=== PATIENT | male | born 1970 | race Caucasian/White ===

== ENCOUNTER 2017-06-17 13:15 | Emergency (ER) | payer SELFPAY ==
[2017-06-17 13:27] VITALS: BP 125/82
[2017-06-17] MEDS ORDERED: BOOSTRIX IM ONE (14:29)
[2017-06-17] MEDS ORDERED: XYLOCAINE 1% 20 mL INFILTRATI ONE (14:29)
[2017-06-17] MEDS ORDERED: MOTRIN PO ONE (14:29)
[2017-06-17] MEDS ORDERED: NACL 0.9% IR ONE (14:30)
--- NOTE | 2017-06-17 14:53 | XRay Report ---
Left index finger 3 views: History: Laceration. Findings: No articular abnormality. No fracture dislocation or periosteal reaction. Impression: No definite bony abnormality left index finger.
--- NOTE | 2017-06-17 15:35 | Emergency Department Report ---
ED Laceration [facility] Chief Complaint: Wound/Laceration Stated Complaint: LEFT HAND LACERATION Time Seen by Provider: 06/17/17 14:28 Occurred When: Yesterday Location: Upper Extremity (left posterior index finger proximal to first joint) Severity: moderate Tetanus Status: Not up to Date Laceration Symptoms: Yes Pain (6/10 aching ), No Foreign Body Sensation, No Numbness, No Weakness ED Review of Systems ROS: Stated complaint: LEFT HAND LACERATION Other details as noted in HPI Constitutional: denies: chills, fever Eyes: denies: eye pain, eye discharge, vision change ENT: denies: ear pain, throat pain Respiratory: denies: cough, shortness of breath, wheezing Cardiovascular: denies: chest pain, palpitations Endocrine: no symptoms reported Gastrointestinal: denies: abdominal pain, nausea, diarrhea Genitourinary: denies: urgency, dysuria Musculoskeletal: denies: back pain, joint swelling, arthralgia Skin: other (laceration finger left index ). denies: rash, lesions Neurological: denies: headache, weakness, paresthesias Psychiatric: denies: anxiety, depression Hematological/Lymphatic: as per HPI ED Past Medical Hx - Past Medical History Previous Medical History?: No - Surgical History Past Surgical History?: Yes Additional Surgical History: reconstructive 2007 - Social History Smoking Status: Current Every Day Smoker Substance Use Type: Alcohol - Medications Home Medications: Home Medications Medication Instructions Recorded Confirmed Last Taken Type Cephalexin [Keflex] 500 mg PO TID #30 capsule 06/17/17 Unknown Rx traMADol [Ultram 50 MG tab] 50 mg PO Q6HR PRN #21 tablet 06/17/17 Unknown Rx Laceration Physical Exam - Exam General: Vital signs noted. No distress. Alert and acting appropriately. Wound Length (cm): 1 (1 cm irregular ) Laceration Location: Upper Extremity Laceration Exam: Yes Normal Distal CMS, No Foreign Body, No Exposed Tendon, Vessel, or Nerve, No Tendon Injury ED Course Vital Signs 06/17/17 13:22 Temperature 98.7 F Pulse Rate 98 H Respiratory 17 Rate Blood Pressure 125/82 O2 Sat by Pulse 98 Oximetry - Laceration /Wound Repair Left Posterior Finger Wound Length (cm): 1 Wound's Depth, Shape: irregular Wound Explored: clean Irrigated w/ Saline (ccs): 200 Betadine Prep?: Yes Anesthesia: 1% Lidocaine Volume Anesthetic (ccs): 3 Wound Debrided: minimal Wound Repaired With: sutures Suture Size/Type: 3:0, proline Number of Sutures: 6 Layer Closure?: No Sterile Dressing Applied?: Yes Progress: left posterior index finger laceration irregular no nerve tendon or muscle involvement rom intact no numbness tingling or weakness flexion nad extension to confrontation intace minimal bleeding wound cleaned with betadine solution anesthesia with 1 lidocaine 3 cc, wound irrigated with 200 cc sterile saline wound close with 3.0 prolyne x 6 sutures all bleed controlled sterile dressing applied pt tolerated procedure with minimal distress pt given wound care instructions . pt verbalized agreement and understanding of discharge instructions. ED Medical Decision Making - Radiology Data Radiology results: report reviewed no fracture - Medical Decision Making pt is a 46 y/o h[place] right handed who presents for left posterior index finger lacertion versus glass approx 12 hrs ago. wound closed , see procedure, noted, tdap given , all bleeding controlled pt tolerated procedure with minimal distress, pt given wound care instructions will follow up with pcp or return to emergency in 7-10 days for suture removal or sooner if symptoms of infection. Critical care attestation.: If time is entered above; I have spent that time in minutes in the direct care of this critically ill patient, excluding procedure time. ED Disposition Clinical Impression: Laceration of finger Qualifiers: Encounter type: initial encounter Finger: index finger Damage to nail status: with damage Foreign body presence: without foreign body Laterality: left Qualified Code(s): S61.311A - Laceration without foreign body of left index finger with damage to nail, initial encounter Disposition: TO HOME OR SELFCARE Is pt being admited?: No Does the pt Need Aspirin: No Condition: Good Instructions: Laceration (ED) Prescriptions: Cephalexin [Keflex] 500 mg PO TID #30 capsule traMADol [Ultram 50 MG tab] 50 mg PO Q6HR PRN #21 tablet PRN Reason: Pain Referrals: PRIMARY CARE,MD [Primary Care Provider] - 3-5 Days Forms: Work/School Release Form(ED) Time of Disposition: 15:47
== END 2017-06-17 16:02 | disposition home or self-care (01) ==
LOC: ED 13:15
DX: S61.211A Laceration without foreign body of left index finger without damage to nail, initial encounter (principal); F17.210 Nicotine dependence, cigarettes, uncomplicated; X58.XXXA Exposure to other specified factors, initial encounter; Y93.89 Activity, other specified; Y92.89 Other specified places as the place of occurrence of the external cause; Y99.8 Other external cause status
CPT/HCPCS: 90471; 90715; 99283

== ENCOUNTER 2021-04-18 22:35 | Emergency (ER) | payer OTHER ==
--- NOTE | 2021-04-18 23:43 | XRay Report ---
LEFT SHOULDER 3 VIEWS INDICATION / CLINICAL INFORMATION: Trauma. Left shoulder injury. COMPARISON: None available. FINDINGS: BONES and JOINT(S): No acute displaced fracture. The AC joint is disrupted with displacement of the c lavicle above the acromion by 1.5 cm. No significant arthritis. SOFT TISSUES: Mild edema is noted along the AC joint. No other significant abnormalities. ADDITIONAL FINDINGS: None. IMPRESSION: Grade II/III left AC joint injury as above. Signer Name: Patricio Calles MD Signed: 04/18/2021 11:38 PM Workstation Name: [id number]
[2021-04-19] MEDS ORDERED: IBUPROFEN 600 MG TAB PO ONE (00:38)
[2021-04-19] MEDS ORDERED: ACETAMINOPHEN 500 MG TAB PO ONE (00:38)
[2021-04-19] MEDS ORDERED: ONDANSETRON 4 MG ODT TAB PO ONE (01:15)
[2021-04-19] MEDS ORDERED: oxyCODONE /ACETAMINOPHEN 5-325MG TAB PO ONE (01:15)
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
[2021-04-19 02:41] VITALS: BP 124/66
== END 2021-04-19 02:42 | disposition home or self-care (01) ==
LOC: ED 22:35
DX: S43.102A Unspecified dislocation of left acromioclavicular joint, initial encounter (principal); S49.92XA Unspecified injury of left shoulder and upper arm, initial encounter; F17.200 Nicotine dependence, unspecified, uncomplicated; Z79.899 Other long term (current) drug therapy; X58.XXXA Exposure to other specified factors, initial encounter; Y93.89 Activity, other specified; Y92.098 Other place in other non-institutional residence as the place of occurrence of the external cause; Y99.8 Other external cause status
CPT/HCPCS: 99283; Q0162